=== PATIENT | male | born 2000 | race Caucasian/White ===

== ENCOUNTER → 2023-04-27 18:34 | Outpatient (CLI) | payer OTHER, SELFPAY ==
--- NOTE | 2023-04-27 18:41 | DI.MRI.S_ITS ---
PROCEDURE: MR KNEE RT WO CON INDICATIONS: RIGHT KNEE PAIN TECHNIQUE: Noncontrast sagittal PD fast spin echo and T2 fast spin echo with fat saturation, sagittal 3-D FLASH with fat saturation; coronal T1 spin echo and PD fast spin echo with fat saturation, and axial PD fast spin echo with fat saturation through the knee. COMPARISON: None. FINDINGS: Image quality: Excellent. Menisci: The medial and lateral menisci demonstrate normal morphology and internal signal. The meniscal root ligaments appear intact. Cruciate ligaments: The anterior and posterior cruciate ligaments appear intact. Medial structures: Low-grade proximal medial collateral ligament sprain near its femoral insertion is seen. The posterior oblique ligament, semimembranosus tendon insertions, oblique popliteal ligament, and meniscocapsular junction appear intact. Visualized portions of the pes anserinus tendons appear normal. No abnormal bursal fluid. Lateral structures: The lateral collateral ligament, long and short heads of the biceps femoris tendon appear intact. The popliteus tendon appears normal; the popliteofibular ligament appears intact. Iliotibial band appears normal. Anterior structures: The quadriceps and patellar tendons appear intact. Patellar alignment is normal. No femoral trochlear dysplasia or ventral trochlear prominence. No edema in the infrapatellar fat pad. Bones and cartilage: No bone marrow contusions or fractures. The cartilage of the medial and lateral femorotibial compartments, as well as the patellofemoral compartment, appears normal in thickness. Joint space: There is physiologic knee joint fluid. No Goodman's cyst. Normal appearing synovial plicae are incidentally noted. IMPRESSION: 1. Low-grade MCL sprain near its femoral insertion. 2. The cruciate ligaments are intact. 3. No evidence of focal meniscal tear. 4. No marrow edema. No fracture or dislocation. Articulating cartilages are intact. No pathologic joint effusion. Dictated by: Elijah Gan M.D. on 04/28/2023 at 9:13 Approved by: Elijah Gan M.D. on 04/28/2023 at 9:15
== END ==
PROVIDERS: Referring Provider Family Medicine; Visit Provider Family Medicine
DX: S83.411A Sprain of medial collateral ligament of right knee, initial encounter (principal); M25.561 Pain in right knee
CPT/HCPCS: 73721